=== PATIENT | female | born 1995 | race Caucasian/White ===

== ENCOUNTER 2021-01-19 19:30 | Emergency (ER) | payer MEDICAID ==
[~2021-01-19] VITALS: Ht 172.7 cm; Wt 90.0 kg
[~2021-01-19 19:30] MED LIST: DOCU-131 PO; FERR325T17 PO; IBUP-1222 PO; METH5TAB2 PO; PNV1TABL4 PO
[2021-01-19] MEDS ORDERED: SODIUM CHLORIDE FLUSH 10ML SYR IVF ONE (20:00)
[2021-01-19] MEDS ORDERED: SODIUM CHLORIDE 0.9% 1,000ML IVBOLUS ONE ×2 (20:00→21:00)
[2021-01-19] MEDS ORDERED: ONDANSETRON 2MG/ML, 2ML IVPush ONE (20:00)
[2021-01-19] MEDS ORDERED: ONDANSETRON 2MG/ML, 2ML ONE (20:17)
[2021-01-19 20:33] LABS: BASOPHILS % (AUTO) 0 % (0-1); EOSINOPHILS % (AUTO) 0 % (1-7); LYMPHOCYTES % (AUTO) 7 % (22-44); MEAN PLATELET VOLUME 7.4 fL (7.4-10.4); MONOCYTES % (AUTO) 9 % (2-9); NEUTROPHILS % (AUTO) 84 % (42-75); PLATELET COUNT 328 x10^3/uL (130-400); RED BLOOD COUNT 4.24 x10^6/uL (3.82-5.3); RED CELL DISTRIBUTION WIDTH 13.7 % (9.6-15.2)
[2021-01-19 20:36] LABS: MD NO
[2021-01-19 20:40] LABS: ALANINE AMINOTRANSFERASE 85 U/L (12-78); ALBUMIN 3.6 g/dL (3.4-5.0); ANION GAP 12 mmol/L (5-15); CALCIUM 8.8 mg/dL (8.5-10.1); CHLORIDE 103 mmol/L (98-107); CREATININE 0.87 mg/dL (0.55-1.02)
[2021-01-19 20:45] LABS: ALKALINE PHOSPHATASE 219 U/L (45-117); BILIRUBIN,TOTAL 0.7 mg/dL (0.2-1.0); TOTAL PROTEIN 8.1 g/dL (6.4-8.2)
[2021-01-19] MEDS ORDERED: ACETAMINOPHEN 500 MG TABLET PO ONE (21:30)
[2021-01-19] MEDS ORDERED: ACETAMINOPHEN 500 MG TABLET ONE (21:31)
[2021-01-19 21:58] LABS: MICROSCOPIC INDICATED
[2021-01-19] MEDS ORDERED: CEFTRIAXONE 1,000 MG in DEXTROSE 5% 50 ML IVPB ONE (22:30)
[2021-01-19 22:42] VITALS: BP 116/75
== END 2021-01-19 22:45 | disposition home or self-care (01) ==
LOC: ED 22:15
DX: R50.9 Fever, unspecified (principal); M79.10 Myalgia, unspecified site; R07.9 Chest pain, unspecified; R00.0 Tachycardia, unspecified
CPT/HCPCS: 36415; 71045; 80053; 81001; 83605; 84145; 84703; 85025; 87040; 87077; 87086; 87186; 93005; 96361; 96365; 96375; 99285; J0696; J2405; J7030